=== PATIENT | female | born 1950 | race Caucasian/White ===

== ENCOUNTER 2018-01-21 14:11 | Outpatient (CLI) | payer MEDICARE ==
--- NOTE | 2018-01-22 11:10 | Mammography Report ---
BONE DEXA:01/21/18 14:11:00 CLINICAL: Postmenopausal. COMPARISON: 07/17/16 TECHNIQUE: Two site bone DEXA performed on an Hologic scanner. FINDINGS: The average BMD of the lumbar spine L1-L4 is 0.699g/cm squared with a T-score of -3.2 and a Z-score of -1.3. This compares to 0.659g/cm squared on the last exam and represents a 6.0% change from the previous baseline. The average BMD of the left hip is 0.670g/cm squared with a T-score of -2.2 and a Z-score of -1.0. This compares to 0.647g/cm squared on the last exam and represents a +3.5% change from the previous baseline. IMPRESSION: 1. WHO classification: Osteoporosis with high fracture risk based on spine measurements. However, a moderate improvement in spine BMD compared to the prior exam. 2. WHO classification: Osteopenia with increased fracture risk based on left hip measurements. A moderate improvement in left hip BMD compared to the prior exam. RECOMMENDATION: Clinical correlation and routine screening. DEFINITIONS: BMD = Bone Mineral Density T-score = BMD related to mean peak bone mass of young adult (mean expressed in Standard Deviation) Z-score = Age matched BMD expressed in SD World Health Organization (WHO) Diagnostic Criteria Normal T-score > -1 SD Osteopenia T-score between -1 and -2.4 SD Osteoporosis T-score -2.5 SD or below NOTE: BMD is not the only risk factor for fracture; also consider factors such as the patient's age, risk of falling, previous osteoporotic fracture, family history of osteoporotic fractures, current smoker, and low body weight. Z-scores are not calculated if >80 years of age.
== END 2018-01-21 14:12 | disposition home or self-care (01) ==
LOC: MAMMO 14:11
PROVIDERS: ATTEND Family Medicine
DX: Z12.31 Encounter for screening mammogram for malignant neoplasm of breast (principal); M81.0 Age-related osteoporosis without current pathological fracture; M85.88 Other specified disorders of bone density and structure, other site; Z78.0 Asymptomatic menopausal state; Z79.52 Long term (current) use of systemic steroids
CPT/HCPCS: 77080